=== PATIENT | male | born 1950 ===

== ENCOUNTER 2018-11-06 12:21 | Emergency (ER) | payer MEDICARE ==
[2018-11-06] MEDS ORDERED: Albuterol-Ipratrop 3 mg / 0.5 (3 ml) UD INH STA (12:42)
--- NOTE | 2018-11-06 12:42 | ED PDOC ---
HPI: SOB/CHF/COPD Time Seen by Provider: 11/06/18 12:33 Chief Complaint (Nursing): Shortness Of Breath Chief Complaint (Provider): Shortness Of Breath History Per: Patient History/Exam Limitations: no limitations Onset/Duration Of Symptoms: Hrs (x1) Associated Symptoms: denies: Chest Pain Additional Complaint(s): 68 years old male with history of hypertension and diabetes brought to ER by EMS for evaluation of shortness of breath onset 1 hour prior to arrival. Patient lives in [place]. He denies chest pain, allergies to medications or experiencing symptoms before. Patient is on the following medication: Metformin 500 mg, Glimepiride 20 mg , Spironolactone 25 mg, Carvedilol 6.25 mg, Clopidogrel 75 mg, Entresto 24-26 mg, Ecotrin 81 mg, Tamsulosin 0.4 mg. PMD: None provided Past Medical History Reviewed: Historical Data, Nursing Documentation, Vital Signs Vital Signs: Last Vital Signs Temp 96.3 F L 11/06/18 12:23 Pulse 98 H 11/06/18 12:23 Resp 16 11/06/18 12:23 BP 135/67 11/06/18 12:23 Pulse Ox 98 11/06/18 12:23 Primary Care Provider: Procedure,Nonphys - Medical History PMH: Diabetes, HTN - Surgical History Surgical History: CABG (x3) - Family History Family History: States: Unknown Family Hx - Allergies Allergies/Adverse Reactions: Allergies Allergy/AdvReac Type Severity Reaction Status Date / Time No Known Allergies Allergy Verified 11/06/18 12:22 Review of Systems ROS Statement: Except As Marked, All Systems Reviewed And Found Negative Cardiovascular: Negative for: Chest Pain Respiratory: Positive for: Shortness of Breath Physical Exam - Reviewed Nursing Documentation Reviewed: Yes Vital Signs Reviewed: Yes - Physical Exam Appears: Positive for: No Acute Distress Head Exam: Positive for: ATRAUMATIC, NORMOCEPHALIC Cardiovascular/Chest: Positive for: Regular Rate, Rhythm, Tachycardia. Negative for: Murmur Respiratory: Positive for: Rales (bilateral), Respiratory Distress (mild) Gastrointestinal/Abdominal: Positive for: Normal Exam, Soft. Negative for: Tenderness Extremity: Positive for: Normal ROM. Negative for: Pedal Edema, Swelling Neurological/Psych: Positive for: Awake, Alert, Oriented (x3), Other (unable to speak full sentences) - Laboratory Results Result Diagrams: 11/06/18 13:04 11/06/18 13:04 - ECG O2 Sat by Pulse Oximetry: 98 (RA) Pulse Ox Interpretation: Normal Medical Decision Making Medical Decision Making: Time: 123 Initial plan: --EKG --BNP --CMP --Troponin --Urine dipstick --CBC --PTT --PT --CXR --Duomen 3 ml INH --BIPAP --Urinalysis CXR FINDINGS: LUNGS: Calculi markings are increased at the right greater than left lung zone in a pattern suspicious for atypical pneumonitis. No definite air bronchograms are identified. If the patient has recently been in position with the right chest dependent and this could reflect pulmonary edema and as result, CHF is not excluded. Hilar vascular markings do not appear prominent and CHF is not fa vored. Clinically correlate further. PLEURA: No significant pleural effusion identified, no pneumothorax apparent. CARDIOVASCULAR: No aortic atherosclerotic calcification present. Normal cardiac size. No pulmonary vascular congestion. OSSEOUS STRUCTURES: No significant abnormalities. VISUALIZED UPPER ABDOMEN: Normal. OTHER FINDINGS: Sternotomy wires noted as well as surgical clips at the left neck soft tissues and mediastinum. IMPRESSION: Atypical pneumonitis is favored over potential CHF. Please see discussion above. Cardiomegaly. No definitive pulmonary vascular congestion. 1449 --CT Angio Chest Scribe Attestation: Documented by Elvia Palmer acting as a scribe for Lacy Gillette MD. Provider Scribe Attestation: All medical record entries made by the Scribe were at my direction and personally dictated by me. I have reviewed the chart and agree that the record accurately reflects my personal performance of the history, physical exam, medical decision making, and the department course for this patient. I have also personally directed, reviewed, and agree with the discharge instructions and disposition. Disposition - Disposition Forms: [facility] (American)
[2018-11-06 13:10] LABS: BASO # 0.1 K/uL (0.0-0.2); BASO % 0.7 % (0.0-2.0); EOS # 0.5 K/uL (0.0-0.7); EOS % 6.2 % (0.0-4.0); HEMOGLOBIN 13.6 g/dL (12.0-18.0); LYMPH # 1.4 K/uL (1.0-4.3); LYMPH % 18.2 % (20.0-40.0); MEAN CELL VOLUME 91.4 fl (80.0-94.0); MEAN CORPUSCULAR HGB CONC 33.9 g/dL (33.0-37.0); MEAN PLATELET VOLUME 10.4 fl (7.2-11.7); MONO # 0.6 K/uL (0.0-0.8); MONO % 7.1 % (0.0-10.0); NEUT # 5.4 K/uL (1.8-7.0); NEUT % 67.8 % (50.0-75.0); RBC 4.39 Mil/uL (4.40-5.90); WHITE BLOOD COUNT 7.9 K/uL (4.8-10.8)
[2018-11-06 13:23] LABS: PROTHROMBIN TIME 11.6 Seconds (9.8-13.1)
[2018-11-06 13:26] LABS: PARTIAL THROMBOPLASTIN TIME 29.3 Seconds (25.6-37.1)
[2018-11-06 13:31] LABS: BLOOD UREA NITROGEN 19 mg/dl (9-20); CALCIUM 9.2 mg/dL (8.4-10.2); GFR NON-AFRICAN AMERICAN > 60
[2018-11-06 13:42] LABS: B-TYPE NATRIURETIC PEPTIDE 610 pg/ml (0-900)
[2018-11-06 13:56] LABS: ALB/GLOB RATIO 1.2 (1.0-2.1); ALBUMIN 4.1 g/dL (3.5-5.0); ALT/SGPT 23 U/L (21-72); AST/SGOT 20 U/L (17-59)
[2018-11-06 14:54] LABS: SQUAMOUS EPITHIAL < 1 /hpf (0-5); URINE BACTERIA RARE (<OCC); URINE BILIRUBIN NEGATIVE (NEGATIVE); URINE BLOOD SMALL (NEGATIVE); URINE CLARITY SLIGHTY-CLOUDY (Clear); URINE COLOR YELLOW (YELLOW); URINE GLUCOSE (UA) 50 mg/dL (NEGATIVE); URINE LEUKOCYTE ESTERASE NEG Leu/uL (Negative); URINE PROTEIN 100 mg/dL (NEGATIVE); URINE UROBILINOGEN 0.2-1.0 mg/dL (0.2-1.0)
[2018-11-06] MEDS ORDERED: Iodixanol 320 MG/ML 100 ML BOTTLE IV ONE (15:04)
[2018-11-06] MEDS ORDERED: Sodium Chloride 0.9% 50 ML IV ONE (15:05)
--- NOTE | 2018-11-06 15:42 | RAD ---
Date of service: 11/06/2018 HISTORY: SOB COMPARISON: None available. TECHNIQUE: 1 view obtained. FINDINGS: LUNGS: Calculi markings are increased at the right greater than left lung zone in a pattern suspicious for atypical pneumonitis. No definite air bronchograms are identified. If the patient has recently been in position with the right chest dependent and this could reflect pulmonary edema and as result, CHF is not excluded. Hilar vascular markings do not appear prominent and CHF is not favored. Clinically correlate further. PLEURA: No significant pleural effusion identified, no pneumothorax apparent. CARDIOVASCULAR: No aortic atherosclerotic calcification present. Normal cardiac size. No pulmonary vascular congestion. OSSEOUS STRUCTURES: No significant abnormalities. VISUALIZED UPPER ABDOMEN: Normal. OTHER FINDINGS: Sternotomy wires noted as well as surgical clips at the left neck soft tissues and mediastinum. IMPRESSION: Atypical pneumonitis is favored over potential CHF. Please see discussion above. Cardiomegaly. No definitive pulmonary vascular congestion.
--- NOTE | 2018-11-06 16:43 | CT ---
Date of service: 11/06/2018 PROCEDURE: CT Chest with contrast (Pulmonary Angiogram) HISTORY: SOB COMPARISON: None available. TECHNIQUE: Axial computed tomography images were obtained of the chest in the pulmonary arterial phase of enhancement. Coronal and sagittal reformatted images were created and reviewed. Intravenous contrast dose: 77 ml Visipaque 320 Mean Hounsfield value in the main pulmonary artery: 268.95 Radiation dose: Total exam DLP = 382.53 mGy-cm. This CT exam was performed using one or more of the following dose reduction techniques: Automated exposure control, adjustment of the mA and/or kV according to patient size, and/or use of iterative reconstruction technique. FINDINGS: PULMONARY ARTERIES: Unremarkable. No pulmonary embolism. AORTA: No acute findings. No thoracic aortic aneurysm. Atherosclerotic calcification and mural plaque present. Findings are seen throughout the aorta which is non aneurysmal. LUNGS: Unremarkable. No nodule, mass or pulmonary consolidation. PLEURAL SPACES: Unremarkable. No effusion or pneumothorax. HEART: Cardiomegaly. Pulmonary Edema. Aortic valve prosthesis, no significant pericardial effusion. LYMPH NODES: Small hilar and mediastinal lymph nodes BONES, CHEST WALL: Unremarkable. No fracture or destructive lesion OTHER FINDINGS: Unremarkable. IMPRESSION: Unremarkable CT pulmonary angiogram. No pulmonary embolus. Mild cardiogenic pulmonary edema.
--- NOTE | 2018-11-06 16:45 | ED PDOC ---
- Laboratory Results Result Diagrams: 11/06/18 13:04 11/06/18 13:04 Lab Results: PT 11.6 Seconds (9.8-13.1) 11/06/18 13:04 INR 1.0 11/06/18 13:04 APTT 29.3 Seconds (25.6-37.1) 11/06/18 13:04 Troponin I < 0.0120 ng/mL (0.00-0.120) 11/06/18 13:04 NT-Pro-B Natriuret Pep 610 pg/ml (0-900) 11/06/18 13:04 Total Bilirubin 0.6 mg/dl (0.2-1.3) 11/06/18 13:04 AST 20 U/L (17-59) 11/06/18 13:04 ALT 23 U/L (21-72) 11/06/18 13:04 Alkaline Phosphatase 57 U/L (38-126) 11/06/18 13:04 Total Protein 7.5 G/DL (6.3-8.2) 11/06/18 13:04 Albumin 4.1 g/dL (3.5-5.0) 11/06/18 13:04 Globulin 3.4 gm/dL (2.2-3.9) 11/06/18 13:04 Albumin/Globulin Ratio 1.2 (1.0-2.1) 11/06/18 13:04 Urine Color Yellow (YELLOW) 11/06/18 14:33 Urine Clarity Slighty-cloudy (Clear) 11/06/18 14:33 Urine pH 5.0 (5.0-8.0) 11/06/18 14:33 Ur Specific [place] 1.013 (1.003-1.030) 11/06/18 14:33 Urine Protein 100 mg/dL (NEGATIVE) 11/06/18 14:33 Urine Glucose (UA) 50 mg/dL (NEGATIVE) 11/06/18 14:33 Urine Ketones Negative mg/dL (NEGATIVE) 11/06/18 14:33 Urine Blood Small (NEGATIVE) 11/06/18 14:33 Urine Nitrate Negative (NEGATIVE) 11/06/18 14:33 Urine Bilirubin Negative (NEGATIVE) 11/06/18 14:33 Urine Urobilinogen 0.2-1.0 mg/dL (0.2-1.0) 11/06/18 14:33 Ur Leukocyte Esterase Neg Robe/uL (Negative) 11/06/18 14:33 Urine RBC (Auto) 3 /hpf (0-3) 11/06/18 14:33 Urine Microscopic WBC 5 /hpf (0-5) 11/06/18 14:33 Ur Squamous Epith Cells < 1 /hpf (0-5) 11/06/18 14:33 Urine Bacteria Rare (<OCC) 11/06/18 14:33 Hyaline Casts 3-5 /hpf (0-2) H 11/06/18 14:33 - ECG O2 Sat by Pulse Oximetry: 98 (RA) Pulse Ox Interpretation: Normal Medical Decision Making Medical Decision Making: Time: [address] Gillette. Patient presented with shortness of breath. Workup negative, pending CT results. Patient clinically improved. 1602 CT Chest FINDINGS: PULMONARY ARTERIES: Unremarkable. No pulmonary embolism. AORTA: No acute findings. No thoracic aortic aneurysm. Atherosclerotic calcification and mural plaque present. Findings are seen throughout the aorta which is non aneurysmal. LUNGS: Unremarkable. No nodule, mass or pulmonary consolidation. PLEURAL SPACES: Unremarkable. No effusion or pneumothorax. HEART: Cardiomegaly. Pulmonary Edema. Aortic valve prosthesis, no significant pericardial effusion. LYMPH NODES: Small hilar and mediastinal lymph nodes BONES, CHEST WALL: Unremarkable. No fracture or destructive lesion OTHER FINDINGS: Unremarkable. IMPRESSION: Unremarkable CT pulmonary angiogram. No pulmonary embolus. Mild cardiogenic pulmonary edema. 1732 Patient's symptoms improved and is ambulatory with SOB and tolerating PO. Return parameters discussed and patient will follow up with PMD. ------- Scribe Attestation: Documented by Elvia Palmer acting as a scribe for Frances Paredes MD. Provider Scribe Attestation: All medical record entries made by the Scribe were at my direction and perso pricila dictated by me. I have reviewed the chart and agree that the record accurately reflects my personal performance of the history, physical exam, medical decision making, and the department course for this patient. I have also personally directed, reviewed, and agree with the discharge instructions and disposition. Disposition - Clinical Impression Clinical Impression: Shortness of breath - POA Present On Arrival: None - Disposition Disposition: Routine/Home Disposition Time: 17:33 Condition: IMPROVED Additional Instructions: Follow up with primary medical doctor. Return to any emergency department if symptoms worsen or if new symptoms develop. Instructions: Shortness of Breath (Dyspnea) (DC) Forms: [facility] (Cymro) Print Language: OCCITAN
[2018-11-06 17:45] VITALS: BP 131/60; PULSE 89; RESP 18; TEMP 97.9
--- NOTE | 2018-11-06 18:11 | CARD ---
APPROVED REPORT Date of service: 11/06/2018 EKG Measurement Heart [id number] <Conclusion> Normal sinus rhythm Possible Left atrial enlargement Left bundle branch block Abnormal ECG
[2018-11-06 22:48] VITALS: O2SAT 98
== END 2018-11-06 17:49 | disposition home or self-care (01) ==
LOC: H.ER 12:21
DX: R06.02 Shortness of breath (principal); E11.9 Type 2 diabetes mellitus without complications; I10 Essential (primary) hypertension; J44.9 Chronic obstructive pulmonary disease, unspecified; Z79.82 Long term (current) use of aspirin; Z79.84 Long term (current) use of oral hypoglycemic drugs; Z79.899 Other long term (current) drug therapy; Z95.1 Presence of aortocoronary bypass graft
CPT/HCPCS: 71045; 71275; 80053; 81003; 82948; 83880; 84484; 85025; 85610; 85730; 93005; 94150; 94640; 99285; Q9967